=== PATIENT | female | born 1995 | race Caucasian/White ===

== ENCOUNTER → 2021-12-01 14:09 | Outpatient (CLI) | payer OTHER, SELFPAY ==
--- NOTE | 2021-12-01 | DI.MRI.S_ITS ---
PROCEDURE: MR LUMBAR SPINE WO CON INDICATIONS: Low back pain, unspecified TECHNIQUE: Noncontrast sagittal T1 spin echo and T2 fast echo, sagittal STIR, and T2 fast spin echo through the lumbar spine. In cases with scoliosis, additional coronal T2 fast spin echo may be performed. COMPARISON: None. FINDINGS: Normal lumbar vertebral body height and alignment. No suspicious focal marrow signal abnormality or bone marrow edema. Normal position and appearance of the conus. Regional soft tissues normal. At L4-L5 and L5-S1 there is disc desiccation and disc height loss with diffuse disc bulges and superimposed broad-based posterior disc protrusions with associated annular fissures. At both L4-L5 and L5-S1 disc material mildly displaces the descending subarticular zone nerve roots, right greater than left at both levels. There is no significant neural foraminal narrowing. From T12-L1 through L3-L4, no significant degenerative change, spinal canal stenosis, or neural foraminal stenosis. IMPRESSION: [id number]-[id number] subarticular zone stenosis at both L4-L5 and L5-S1, with mild mass effect on the descending L5 and S1 nerve roots at these levels, respectively (right greater than left at both levels). Annular fissures of the L4-L5 and L5-S1 discs, potential sources of nonradicular axial back pain. Dictated by: Kevin Jamil M.D. on 12/01/2021 at 15:30 Approved by: Kevin Jamil M.D. on 12/01/2021 at 15:32
== END ==
DX: M48.061 Spinal stenosis, lumbar region without neurogenic claudication (principal); M48.07 Spinal stenosis, lumbosacral region; M51.26 Other intervertebral disc displacement, lumbar region; M51.27 Other intervertebral disc displacement, lumbosacral region
CPT/HCPCS: 72148

== ENCOUNTER → 2022-09-21 15:50 | Outpatient (CLI) | payer OTHER, SELFPAY ==
--- NOTE | 2022-09-21 | DI.MRI.S_ITS ---
PROCEDURE: MR LUMBAR SPINE WO CON INDICATIONS: Low back pain, unspecified TECHNIQUE: Noncontrast sagittal T1 spin echo and T2 fast echo, sagittal STIR, and T2 fast spin echo through the lumbar spine. In cases with scoliosis, additional coronal T2 fast spin echo may be performed. COMPARISON: [facility], MR, MR LUMBAR SPINE WO CON, 12/01/2021, 14:28. FINDINGS: Image quality: Excellent. Alignment and Curvature: There is normal bony alignment. Bone Marrow: Marrow is of normal overall signal. No acute vertebral body compression fractures. Spinal Cord: Conus medullaris terminates at the L1 level. Visualized cord demonstrates normal signal and size. Paraspinous Soft Tissues: No paravertebral masses. T12-L1: Normal appearance. L1-L2: Normal appearance. L2-L3: Normal appearance. L3-L4: Normal appearance. L4-L5: Moderate disc height loss and broad-based disc bulge. L5-S1: Moderate disc height loss and broad-based disc bulge. IMPRESSION: Moderate degenerative disc disease at L4-5 and L5-S1. This has not significantly progressed since 2021. Dictated by: Jack Escalante M.D. on 09/21/2022 at 16:45 Approved by: Jack Escalante M.D. on 09/21/2022 at 16:47
== END ==
PROVIDERS: Referring Provider Orthopaedic Surgery Orthopaedic Surgery of the Spine; Visit Provider Orthopaedic Surgery Orthopaedic Surgery of the Spine
DX: M51.36 Other intervertebral disc degeneration, lumbar region (principal); M51.37 Other intervertebral disc degeneration, lumbosacral region; M54.50 Low back pain, unspecified
CPT/HCPCS: 72148

== ENCOUNTER 2022-11-24 15:24 | Outpatient (CLI) | payer OTHER, SELFPAY ==
--- NOTE | 2022-11-24 15:27 | DI.RAD.S_ITS ---
PROCEDURE: PAIN L INTERLAMINAR/CAUDAL INJ INDICATIONS: L4-5 ILESI COMPARISON: None. FINDINGS: Fluoroscopic spot filming was performed to verify placement of spinal needles at the lower lumbar level(s), as labeled on the films. Appropriate location(s) of the needle tip(s) was confirmed by injection of iodinated contrast. IMPRESSION: Needle placement as above Dictated by: Reina Allen M.D. on 11/24/2022 at 16:52 Approved by: Reina Allen M.D. on 11/24/2022 at 16:52
[2022-11-24 15:35] VITALS: BP 127/76; PULSE 57; RESP 16; TEMP 36.6; O2SAT 100
[2022-11-24 15:55] VITALS: BP 138/70; PULSE 60; RESP 16; O2SAT 100
[2022-11-24] MEDS: DEXAMETHASONE 10 MG/ML VIAL 20 MG INJ (15:57)
[2022-11-24] MEDS: IOPAMIDOL 15 ML VIAL 3 ML INJ (15:57)
[2022-11-24 16:00] VITALS: BP 126/67; PULSE 64; RESP 18; O2SAT 100
[2022-11-24 16:02] VITALS: BP 124/67; PULSE 67; RESP 12; O2SAT 100
[2022-11-24 16:05] VITALS: BP 121/80; PULSE 59; RESP 20; O2SAT 100
--- NOTE | 2022-11-24 16:06 | P.PCN_ITS ---
Date/Time/Diagnoses Date of procedure: 11/24/22 Time of procedure: 16:00 Procedure Notes Physician: Moisés George Total Fluoroscopy time (seconds): 11 Total sedation minutes: 0 Procedure in detail & Post-procedure care: L4-5 Interlaminar Epidural Steroid Injection Indications: Shantel is presenting for treatment of lumbar radiculopathy with low back and leg pain. Preoperative diagnosis: Lumbar radiculopathy Postoperative diagnosis: Same Focused Examination: Ax3 Mood and affect are normal Vital Signs: VSS Consent: Following review of allergies and potential side effects/complications, including, but not necessarily limited to, infection, allergic reaction, local tissue breakdown, stroke, temporary or permanent nerve injury, paralysis, and possible , the patient indicated that they understood and agreed to proceed.? An informed consent document was signed by the patient, witnessed by a nurse and placed in the patient's chart.? Additionally, other treatment options including medications and physical therapy were reviewed with the patient. All questions were answered. Site was then marked. Anesthesia: Local Position: Prone Monitoring: NIBP, Pulse oximetry, 3 lead EKG Needle used: 18 G 3.5? Tuohy Contrast: Isovue 300M Injectate: Dexamethasone 15 mg with 1% lidocaine 1.5 mL Technique: The skin was prepped with chloraprep and then draped in a sterile fashion. Time out was performed as per protocol. Oxygen applied via NC. Skin and subcutaneous structures of the needle entry site was then infiltrated with 3 mL of lidocaine 1%. Under AP, lateral and contralateral oblique fluoroscopic control, the Tuohy needle was guided into the L4-5 epidural space. The space was accessed with loss of resistance technique. Isovue 300M was then injected and the spread was consistent with the epidural space. There was no evidence for intravascular or intrathecal uptake. After negative aspiration, the above- mentioned injectate was then slowly administered and the needle withdrawn. The patient expressed no unusual discomfort or paresthesias during the injection. Band-Aids applied to injection sites. EBL: less than 1 ml Complications: None Post Procedure: Patient was taken to the recovery and monitored. The patient was provided a Pain Log to continue to record the patient's response to the target- specific procedure prior to the patient's follow-up visit with the referring physician. Patient was stable upon discharge. Detailed post procedure instructions were provided. Patient was asked to call in the event of worsening pain, fever, weakness, numbness or bladder or bowel incontinence.
[2022-11-24 16:10] VITALS: BP 116/77; PULSE 67; RESP 20; O2SAT 100
== END 2022-11-24 16:15 | disposition home or self-care (01) ==
PROVIDERS: Referring Provider Anesthesiology; Visit Provider Anesthesiology
DX: M54.16 Radiculopathy, lumbar region (principal)
CPT/HCPCS: 62323; J1100

== ENCOUNTER 2023-01-12 10:55 | Outpatient (CLI) | payer OTHER, SELFPAY ==
--- NOTE | 2023-01-12 10:56 | DI.RAD.S_ITS ---
PROCEDURE: PAIN SI JOINT INJECTION CONCEPCIÓN INDICATIONS: JOINT DYSFUNCTION COMPARISON: [facility], XA, PAIN L INTERLAMINAR/CAUDAL INJ, 11/24/2022, 15:54. FINDINGS: Fluoroscopic spot filming was performed to verify placement of spinal needles within both sacroiliac joints. Appropriate location(s) of the needle tip(s) was confirmed by injection of iodinated contrast. IMPRESSION: Intraprocedural examination within normal limits. Dictated by: Estrada Mccarthy M.D. on 01/12/2023 at 17:20 Approved by: Estrada Mccarthy M.D. on 01/12/2023 at 17:21
[2023-01-12 11:05] VITALS: BP 123/77; PULSE 56; RESP 16; TEMP 36.7; O2SAT 98
--- NOTE | 2023-01-12 11:15 | PC.NURSE ---
Patient declined IV placement. Educated on protocol and reason for IV access in case of emergency and she continues to decline while verbalizing understanding.
[2023-01-12 11:30] VITALS: BP 130/63; PULSE 74; RESP 19; O2SAT 100
[2023-01-12] MEDS: DEXAMETHASONE 10 MG/ML VIAL 20 MG INJ (11:31)
[2023-01-12] MEDS: BUPIVACAINE 0.25% (PF) VIAL 5 ML INJ (11:32)
[2023-01-12] MEDS: IOPAMIDOL 15 ML VIAL 3 ML INJ (11:32)
[2023-01-12 11:35] VITALS: BP 123/65; PULSE 73; RESP 19; O2SAT 95
[2023-01-12 11:40] VITALS: PULSE 67; RESP 12; O2SAT 100
[2023-01-12 11:45] VITALS: BP 149/75; PULSE 70; RESP 18; O2SAT 99
--- NOTE | 2023-01-12 11:47 | P.PCN_ITS ---
Date/Time/Diagnoses Date of procedure: 01/12/23 Time of procedure: 11:30 Procedure Notes Physician: Moisés George Total Fluoroscopy time (seconds): 18 Total sedation minutes: 0 Procedure in detail & Post-procedure care: Bilateral Sacroiliac Joint Injection Indications: Shantel is presenting for treatment of SI joint dysfunction with low back/buttock pain. Preoperative diagnosis: Bilateral SI joint dysfunction Postoperative diagnosis: Same Focused Examination: Ax3 Mood and affect are normal Vital Signs: VSS Consent: Following review of allergies and potential side effects/complications, including, but not necessarily limited to, infection, allergic reaction, local tissue breakdown, stroke, temporary or permanent nerve injury, paralysis, and possible , the patient indicated that they understood and agreed to proceed.? An informed consent document was signed by the patient, witnessed by a nurse and placed in the patient's chart.? Additionally, other treatment options including medications and physical therapy were reviewed with the patient. All questions were answered. Site was then marked. Anesthesia: Local Position: Prone Monitoring: NIBP, Pulse oximetry, 3 lead EKG Needle used: 22 ga, 3.5 inch spinal Contrast: 2 mL Isovue M-300 Injectate: Dexamethasone 7.5 mg with 0.25% bupivacaine 2 mL per site Technique: The skin was prepped with chloraprep and then draped in a sterile fashion. Time out was performed as per protocol. Oxygen applied via NC. Skin and subcutaneous structures of the needle entry site was then infiltrated with 5 mL of lidocaine 1%. Under AP and lateral fluoroscopic control, the spinal needle was guided into the right sacroiliac joint. 1 mL contrast was injected and was consistent with intra-articular placement. There was no evidence for intravascular uptake. After negative aspiration, the above-mentioned injectate was then slowly administered and the needle withdrawn. The patient expressed no unusual discomfort or paresthesias during the injection. Skin and subcutaneous structures of the needle entry site was then infiltrated with 5 mL of lidocaine 1%. Under AP and lateral fluoroscopic control, the spinal needle was guided into the left sacroiliac joint. 1 mL contrast was injected and was consistent with intra-articular placement. There was no evidence for intravascular uptake. After negative aspiration, the above-mentioned injectate was then slowly administered and the needle withdrawn. The patient expressed no unusual discomfort or paresthesias during the injection.Band-Aids applied to injection sites. EBL: less than 1 ml Complications: None Post Procedure: Patient was taken to the recovery and monitored. The patient was provided a Pain Log to continue to record the patient's response to the target- specific procedure prior to the patient's follow-up visit with the referring physician. Patient was stable upon discharge. Detailed post procedure instructions were provided. Patient was asked to call in the event of worsening pain, fever, weakness, numbness or bladder or bowel incontinence.
[2023-01-12 11:50] VITALS: BP 126/79; PULSE 79; RESP 18; O2SAT 99
== END 2023-01-12 12:04 | disposition home or self-care (01) ==
PROVIDERS: Referring Provider Anesthesiology; Visit Provider Anesthesiology
DX: M53.3 Sacrococcygeal disorders, not elsewhere classified (principal)
CPT/HCPCS: 27096; J1100; J3490

== ENCOUNTER 2023-04-06 13:37 | Outpatient (CLI) | payer OTHER, SELFPAY ==
[2023-04-06] VITALS (10 sets, daily range): BP systolic 117–142; BP diastolic 64–91; PULSE 58–78; RESP 14–23; TEMP 36.8; O2SAT 96–100
--- NOTE | 2023-04-06 13:39 | DI.RAD.S_ITS ---
PROCEDURE: PAIN L/S FACET INJ/BLK 1ST CONCEPCIÓN INDICATIONS: Spondylosis COMPARISON: None. FINDINGS: Fluoroscopic spot filming was performed to verify placement of spinal needles at the right L4-L5 and L5-S1 facet level(s), as labeled on the films. Appropriate location(s) of the needle tip(s) was confirmed by injection of iodinated contrast. IMPRESSION: Fluoroscopic guidance utilized for 2 level lumbar facet steroid injection. Dictated by: David Sunshine M.D. on 04/06/2023 at 17:08 Approved by: David Sunshine M.D. on 04/06/2023 at 17:09
[2023-04-06] MEDS: MIDAZOLAM 2 MG/2 ML VIAL IV (14:00)
[2023-04-06] MEDS: iopamidoL 15 ML VIAL 3 ML INJ (14:07)
[2023-04-06] MEDS: MIDAZOLAM 2 MG/2 ML VIAL 1 MG IV (14:08)
[2023-04-06] MEDS: BUPIVACAINE 0.5% (PF) 10 ML VIAL 5 ML INJ (14:09)
--- NOTE | 2023-04-06 14:44 | P.PCN_ITS ---
Date/Time/Diagnoses Date of procedure: 04/06/23 Time of procedure: 14:00 Procedure Notes Physician: Moisés George Total Fluoroscopy time (seconds): 29 Total sedation minutes: 25 Procedure in detail & Post-procedure care: Bilateral L4-5 and L5-S1 Intra-articular Lumbar Facet Injection(s) Indications: Shantel is presenting for treatment of lumbar facet arthropathy with low back pain. Preoperative diagnosis: Bilateral facet arthropathy Postoperative diagnosis: Same Focused Examination: Ax3 Mood and affect are normal Vital Signs: VSS ASA: 2 Consent: Following review of allergies and potential side effects/complications, including, but not necessarily limited to, infection, allergic reaction, local tissue breakdown, stroke, temporary or permanent nerve injury, paralysis, and possible , the patient indicated that they understood and agreed to proceed.? An informed consent document was signed by the patient, witnessed by a nurse and placed in the patient's chart.? Additionally, other treatment options including medications and physical therapy were reviewed with the patient. All questions were answered. Site was then marked. Anesthesia: After review of previous anesthetic history and IV conscious sedation, the patient was deemed safe to proceed with today's procedure with IV conscious sedation. IV sedation was accomplished with midazolam 3 mg administered by the RN after order by Dr. George. Sedation was titrated to patient comfort during the course of the procedure. Patient remained responsive to all verbal commands. Position: Prone Monitoring: NIBP, Pulse oximetry, 3 lead EKG Needle used: 22 ga, 3.5 in spinal needle Contrast: Isovue 300-M 0.3 mL per site Injectate: Depomedrol 20 mg (80 mg/ml) with 0.5% Bupivacaine, 0.5 mL per site Technique: The skin was prepped with chloraprep and then draped in a sterile fashion. Time out was performed as per protocol. Oxygen applied via NC. Skin and subcutaneous structures of the needle entry site(s) were then infiltrated with 3 mL of lidocaine 1%. Under AP, ipsilateral oblique and lateral fluoroscopic control, the spinal needle was guided into the posterior aspect of the right L4- 5 intra-articular space and using a second spinal needle, the right L5-S1. Isoview 300-M was then injected and the spread was consistent with intra- articular placement. There was no evidence for intravascular or extracapsular uptake. After negative aspiration, the above-mentioned injectate was then slowly administered and the needle withdrawn. The patient expressed no unusual discomfort or paresthesias during the injection. The above injection was then repeated on the left L4-5 and left L5-S1 facet joints. Band-Aids applied to injection sites. EBL: less than 1 ml Complications: None Post Procedure: Patient was taken to the recovery and monitored. The patient was provided a Pain Log to continue to record the patient's response to the target- specific procedure prior to the patient's follow-up visit with the referring physician. Patient was stable upon discharge. Detailed post procedure instructions were provided. Patient was asked to call in the event of worsening pain, fever, weakness, numbness or bladder or bowel incontinence.
== END 2023-04-06 14:45 | disposition home or self-care (01) ==
LOC: RAD 13:38
PROVIDERS: Referring Provider Anesthesiology; Visit Provider Anesthesiology
DX: M47.816 Spondylosis without myelopathy or radiculopathy, lumbar region (principal)
CPT/HCPCS: 64493; 64494; 99152; 99153; J1030; J1040; J2250; J2920